=== PATIENT | male | born 1945 | race Caucasian/White ===

== ENCOUNTER → 2024-10-13 09:39 | Outpatient (REF) | payer MEDICARE, SELFPAY | LOC: DHVS 09:39 | PROVIDERS: ATTENDING PHYSICIAN Surgery Vascular Surgery; FAMILY PHYSICIAN Internal Medicine Cardiovascular Disease | DX: I77.9 Disorder of arteries and arterioles, unspecified (principal); I77.1 Stricture of artery | CPT/HCPCS: 93923; 93930 ==

== ENCOUNTER → 2025-10-02 13:14 | Outpatient (REF) | payer MEDICARE, BC, SELFPAY | LOC: RAD 13:14 | PROVIDERS: ATTENDING PHYSICIAN Surgery Vascular Surgery; FAMILY PHYSICIAN Internal Medicine; OTHER PHYSICIAN Internal Medicine Cardiovascular Disease | DX: I77.1 Stricture of artery (principal) | CPT/HCPCS: 93931 ==